=== PATIENT | male | born 1985 | race Caucasian/White ===

== ENCOUNTER 2017-04-30 14:38 | Emergency (ER) | payer SELFPAY ==
[~2017-04-30] VITALS: Ht 175.3 cm; Wt 87.9 kg
[2017-04-30 14:41] VITALS: BP 110/72
== END 2017-04-30 15:39 | disposition left against medical advice (07) ==
LOC: EME 14:38
DX: M54.9 Dorsalgia, unspecified (principal); Z53.21 Procedure and treatment not carried out due to patient leaving prior to being seen by health care provider